=== PATIENT | female | born 1995 | race Caucasian/White ===

== ENCOUNTER 2018-02-07 15:03 | Emergency (ER) | payer OTHER ==
--- NOTE | 2018-02-07 15:12 | ER Report ---
History and Physical Time Seen By MD: 15:12 HPI/ROS CHIEF COMPLAINT: Right shoulder dislocation HISTORY OF PRESENT ILLNESS: 22-year-old female patient presents to emergency room with complaint of right shoulder dislocation. 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 She states that her arm shift with a table causing her shoulder to dislocate. She initially went to [facility] urgent care, had an x-ray done there which showed an anterior dislocation of the right humerus. She was referred to the emergency room for further evaluation and reduction. Patient states that she is having significant amounts of pain. She rates her pain an 8-9 out of 10. She denies having any numbness tingling in her hand. Patient states she is not taking any medication for this. REVIEW OF SYSTEMS: Respiratory: No cough, no dyspnea. Cardiovascular: No chest pain, no palpitations. Gastrointestinal: No vomiting, no abdominal pain. Musculoskeletal: As noted above Allergies: Coded Allergies: No Known Drug Allergies (Unverified , 02/07/18) Home Meds Active Scripts Hydrocodone Bit/Acetaminophen (HYDROCODON-ACETAMINOPHEN 5-325) 1 Each Tablet, 1 EACH PO Q4-6H Y for PAIN, #12 TAB Prov:ZULAY CORNELLSSCyndi TURK 02/07/18 Past Medical/Surgical History Patient has a past medical history of cholecystitis. Patient has a surgical history of cholecystectomy. Reviewed Nurses Notes: Yes Constitutional Vital Sign - Last 24 Hours 02/07/18 02/07/18 02/07/18 02/07/18 15:03 15:08 15:08 15:11 Temp 98.5 Pulse ??? 81 ??? Resp 20 B/P (MAP) 120/80 120/80 (93) Pulse Ox 91 O2 Delivery Room Air 02/07/18 02/07/18 02/07/18 02/07/18 15:13 15:18 15:23 15:28 Pulse 80 86 71 72 Pulse Ox 95 96 95 96 02/07/18 02/07/18 02/07/18 02/07/18 15:30 15:33 15:35 15:38 Pulse 73 71 Resp 15 11 B/P (MAP) 123/83 (96) 111/98 (102) Pulse Ox 99 100 02/07/18 02/07/18 02/07/1802/07/18 15:40 15:43 15:45 15:50 Pulse 79 Resp 8 B/P (MAP) 125/80 (95) 113/95 (101) 120/89 (99) Pulse Ox 99 02/07/18 02/07/18 02/07/18 02/07/18 15:53 15:55 15:58 16:00 Pulse 90 81 Resp 21 13 B/P (MAP) 132/89 (103) 127/93 (104) Pulse Ox 100 100 02/07/18 02/07/18 02/07/18 02/07/18 16:03 16:05 16:08 16:10 Pulse 93 86 Resp 10 6 B/P (MAP) 132/83 (99) 121/78 (92) Pulse Ox 96 97 02/07/18 02/07/18 02/07/18 02/07/18 16:13 16:15 16:18 16:20 Pulse 79 80 Resp 22 15 B/P (MAP) 132/84 (100) 127/81 (96) Pulse Ox 98 98 02/07/18 02/07/18 02/07/18 02/07/18 16:23 16:25 16:28 16:30 Pulse 79 85 Resp 11 17 B/P (MAP) 132/86 (101) 119/83 (95) Pulse Ox 99 99 02/07/18 02/07/18 02/07/18 16:33 16:35 16:38 Pulse 82 76 Resp 13 8 B/P (MAP) 116/85 (95) Pulse Ox 100 97 Physical Exam General Appearance: The patient is alert, has no immediate need for airway protection and no current signs of toxicity. Respiratory: Chest is non tender, lungs are clear to auscultation. Cardiac: regular rate and rhythm Gastrointestinal: Abdomen is soft and non tender, no masses, bowel sounds normal. Musculoskeletal: Extremities have full range of motion and are non tender. Patient has obvious dislocation of right shoulder, she has step-off as well as humeral head is palpable on the chest. Skin: No rashes or lesions. DIFFERENTIAL DIAGNOSIS: After history and physical exam differential diagnosis was considered for right shoulder dislocation Medical Decision Making EKG/Imaging Imaging SHOULDER MIN 2 VIEWS RIGHT COMPARISONS: None. ADDITIONAL PERTINENT HISTORY: Post reduction FINDINGS: Osseous structures: Negative. Joint spaces: Negative. Surrounding soft tissues: Negative. IMPRESSION: 1. Normal views of the right shoulder. 2. Specifically the glenohumeral joint has a normal appearance with no evidence of dislocation. Report Dictated By: Leobardo Badillo MD at 02/07/2018 4:20 PM Report E-Signed By: Leobardo Badillo MD at 02/07/2018 4:20 PM ED Course/Re-evaluation ED Course Patient was admitted and examined, history and physical were obtained. Differential diagnoses were considered. On examination patient does have obvious dislocation of the right shoulder. I did review the x-rays from the urgent care which shows an obvious anterior dislocation. With patient's consent we did do conscious sedation and reduction as described below. Patient tolerated procedure well. A repeat x-ray was done which showed successful reduction of the right shoulder. Patient was placed in a sling. After waiting several minutes for her to be fully awake patient states she's feeling significant better. Her pain is a 2 out of 10. She denies any numbness tingling to the hand, she will move the fingers without any difficulties. We'll go ahead and discharge patient home. She is follow-up with [facility], information was given for them to call. She is to return to the emergency room if condition worsens. She may take ibuprofen in addition to pain medication to help with her pain. Patient and mother verbalized understanding and agreement with plan. Procedure: Procedural sedation. A pre-sedation evaluation was completed on the patient at 1547. Patient is an appropriate candidate for procedural sedation. The risks of the sedation were discussed with the patient. A time out was completed. The patient was reevaluated immediately prior to initiation of sedation. The patient was sedated with 75 mg of propofol. The patient was monitored with continuous pulse oximetry and school lunch monitor. There were no complications and no significant hypoxemia. I remained at the bedside for the sedation. The total time I spent in the procedural sedation was 10 minutes. Post sedation evaluation: Patient was alert and cooperative, hemodynamically stable with appropriate respiratory status, temperature and pain control without ongoing nausea and vomiting. Conscious sedation was performed by Dr. Carroll. Procedure: Dislocation reduction. The shoulder was reduced in the usual fashion without complications. Post reduction the patient's neurovascular exam is normal. Post reduction x-ray demonstrates reduction of the joint to the anatomic position. The procedure was performed by myself under the direct supervision of Dr. Carroll. Decision to Disposition Date: February 07, 2018 Decision to Disposition Time: 16:39 Depart Departure Latest Vital Signs Vital Signs Date Time Temp Pulse Resp B/P (MAP) Pulse Ox O2 Delivery O2 Flow Rate FiO2 02/07/18 16:38 76 8 97 02/07/18 16:35 116/85 (95) 02/07/18 15:08 98.5 Room Air Impression: Primary Impression: Dislocation of right shoulder joint Condition: Improved Disposition: HOME OR SELF-CARE Referrals: MADISON STEVENSON MD New Scripts Hydrocodone Bit/Acetaminophen (HYDROCODON-ACETAMINOPHEN 5-325) 1 Each Tablet 1 EACH PO Q4-6H Y for PAIN, #12 TAB Prov: DC CORNELL 02/07/18 Patient Instructions: Shoulder Dislocation (ED) Additional Instructions: Limit activity by pain. Ice the shoulder 2-3 times a day for 10-15 minutes. [facility]up with [facility], call on Friday to make an appointment. Wear the sling 23/24 hours a day, you may take it off to shower. Take Ibuprofen (600mg 4 times a day) as needed for pain medication in addition to the pain medication. Return to the emergency room if condition worsens. Problem Qualifiers Primary Impression: Dislocation of right shoulder joint Encounter type: initial encounter Qualified Codes: S43.004A - Unspecified dislocation of right shoulder joint, initial encounter DC CORNELL February 07, 2018 15:12
[2018-02-07] MEDS ORDERED: PROPOFOL EMUL 10MG/ML 20 ML VL IV ONE (15:20)
[2018-02-07] MEDS ORDERED: NS(*) 0.9% 1000 ML BAG 1,000 ML IV ONE (15:20)
[2018-02-07] MEDS ORDERED: fentaNYL CITR 100 MCG/2 ML AMP IVP ONE ×2 (15:20→15:55)
[2018-02-07] MEDS ORDERED: ONDANSETRON 4 MG/2 ML VIAL ONE (15:40)
[2018-02-07] MEDS ORDERED: APAP/HYDROCODONE 325/5 TAB PO ONE (15:55)
--- NOTE | 2018-02-07 16:24 | RADIOLOGY IMAGING REPORT ---
FACILITY: [facility] PATIENT NAME: Gaby Brito : 1995 MR: [id number] V: [id number] EXAM DATE: ORDERING PHYSICIAN: DC CORNELL TECHNOLOGIST: Location: [facility] - [place] Patient: Gaby Brito : 1995 Visit/Account:[id number] Date of Sevice: 02/07/2018 SHOULDER MIN 2 VIEWS RIGHT COMPARISONS: None. ADDITIONAL PERTINENT HISTORY: Post reduction FINDINGS: Osseous structures: Negative. Joint spaces: Negative. Surrounding soft tissues: Negative. IMPRESSION: 1. Normal views of the right shoulder. 2. Specifically the glenohumeral joint has a normal appearance with no evidence of dislocation. Report Dictated By: Leobardo Badillo MD at 02/07/2018 4:20 PM Report E-Signed By: Leobardo Badillo MD at 02/07/2018 4:20 PM WSN:[id number]
[2018-02-07] MEDS ORDERED: HYDR-385 PO (16:37)
[2018-02-07 16:50] VITALS: BP 116/92
== END 2018-02-07 16:43 | disposition home or self-care (01) ==
LOC: ER 15:16
DX: S43.004A Unspecified dislocation of right shoulder joint, initial encounter (principal)
CPT/HCPCS: 23650; 73030; 99156; 99284; J2704; J3010; J7030; 99152

== ENCOUNTER 2018-05-10 03:40 | Emergency (ER) | payer OTHER ==
[~2018-05-10 03:40] MED LIST: HYDR-385 PO
[2018-05-10] MEDS ORDERED: BERBERINE PO (03:50)
[2018-05-10] MEDS ORDERED: NORG1TAB74 PO (03:50)
--- NOTE | 2018-05-10 04:14 | ER Report ---
History and Physical Time Seen By MD: 03:48 Hx. of Stated Complaint: PT REPORTS THAT SHE GOT OFF WORK TONIGHT. FELT "FUNKY" IN MY CHEST. FEELS LIKE HEART IN THROAT. FIRST SYMPTOMS AT ABOUT 0300. HPI/ROS CHIEF COMPLAINT: palpitations HISTORY OF PRESENT ILLNESS: This is a 22 year old female. She started having palpitations at about 0300 when she was getting off of work. Feeling normal prior to that. Nothing makes them worse or better. Denies any stimulant use such as caffeine, tobacco or energy drinks. No drug use. Mildly short of breath with these. No chest pain. No nausea. Feeling a little bit dizzy. No fevers or chills .No abdominal pain. Normal bowel and bladder function. Allergies: Coded Allergies: No Known Drug Allergies (Unverified , 05/10/18) Home Meds Reported Medications [Berberine] No Conflict Check, 1000 MG PO BID 05/10/18 Norgestimate-Ethinyl Estradiol (SPRINTEC) 1 Each Tablet, 1 EACH PO DAILY 05/10/18 Discontinued Scripts Hydrocodone Bit/Acetaminophen (HYDROCODON-ACETAMINOPHEN 5-325) 1 Each Tablet, 1 EACH PO Q4-6H Y for PAIN, #12 TAB Prov:DC CORNELL PAN SHAKER 02/07/18 Past Medical/Surgical History PCO S, anxiety and depression, history of cholecystectomy Reviewed Nurses Notes: Yes Hx Substance Use Disorder: No Hx Alcohol Use: No Constitutional Vital Sign - Last 24 Hours 05/10/18 05/10/18 05/10/18 05/10/18 03:47 03:50 04:00 04:15 Temp 98.2 Pulse 93 85 83 Resp 14 10 B/P (MAP) 143/105 (118) 143/105 134/90 (105) 123/84 (97) Pulse Ox 97 98 O2 Delivery Room Air 05/10/18 05/10/18 05/10/18 05/10/18 04:30 05:00 05:15 05:30 Pulse 90 85 93 Resp 16 9 B/P (MAP) 130/88 (102) 119/76 (90) 116/79 (91) Pulse Ox 96 96 Physical Exam General Appearance: The patient is alert. No acute distress. Eyes: Pupils are equal, round. No pallor, injection or icterus. ENT: Mucous membranes are moist. Neck: Supple and non tender. No lymphadenopathy. Respiratory: Lungs are clear to auscultation. Cardiovascular: Regular rate and rhythm. No murmurs, gallops or rubs. Normal capillary refill. No edema. Gastrointestinal: Abdomen is soft and non tender. Nondistended. Normal active bowel sounds. Neurological: Alert and oriented x3. Cranial nerves II through XII show no acute deficits on my exam. No focal neurologic deficits in the extremities. Skin: Warm and dry. No rashes. DIFFERENTIAL DIAGNOSIS: After history and physical exam, differential diagnosis was considered for heart palpitations looking for possible electrolyte abnormality, cardiac problems, thyroid abnormality, substance use, other metabolic problems. Medical Decision Making Data Points Result Diagram: 05/10/18 0435 05/10/18 0435 Laboratory Hematology Test 05/10/18 04:25 05/10/18 04:35 Urine Color Yellow Urine Clarity Clear Urine pH 6.0 pH (4.8-9.5) Urine Specific [place] 1.019 Urine Protein Negative mg/dL (NEGATIVE) Urine Glucose (UA) Negative mg/dL (NEGATIVE) Urine Ketones Negative mg/dL (NEGATIVE) Urine Blood Negative (NEGATIVE) Urine Nitrite Negative (NEGATIVE) Urine Bilirubin Negative (NEGATIVE) Urine Urobilinogen Negative mg/dL (0.2-1.9) Urine Leukocyte Esterase Negative (NEGATIVE) Urine RBC None /HPF (0-2/HPF) Urine WBC 1 /HPF (0-5/HPF) Urine Squamous Epithelial Cells Many /LPF (</=FEW) Urine Bacteria Negative /HPF (NONE-FEW) Urine Mucus None /HPF (NONE-FEW) Urine Opiates Screen Negative Urine Barbiturates Screen Negative Ur Tricyclic Antidepressants Screen Negative Urine Phencyclidine Screen Negative Urine Amphetamines Screen Negative Urine Benzodiazepines Screen Negative Urine Cocaine Screen Negative Urine Cannabinoids Screen Negative Red Blood Count 5.08 M/uL (4.17-5.56) Mean Corpuscular Volume 82.0 fL (80.0-96.0) Mean Corpuscular Hemoglobin 28.7 pg (26.0-33.0) Mean Corpuscular Hemoglobin Concent 35.0 g/dL (32.0-36.0) Red Cell Distribution Width 13.3 % (11.5-14.5) Mean Platelet Volume 6.3 fL (7.2-11.1) Neutrophils (%) (Auto) 55.0 % (39.4-72.5) Lymphocytes (%) (Auto) 33.4 % (17.6-49.6) Monocytes (%) (Auto) 7.3 % (4.1-12.4) Eosinophils (%) (Auto) 3.9 % (0.4-6.7) Basophils (%) (Auto) 0.4 % (0.3-1.4) Nucleated RBC Relative Count (auto) 0.1 /100WBC Neutrophils # (Auto) 5.2 K/uL (2.0-7.4) Lymphocytes # (Auto) 3.2 K/uL (1.3-3.6) Monocytes # (Auto) 0.7 K/uL (0.3-1.0) Eosinophils # (Auto) 0.4 K/uL (0.0-0.5) Basophils # (Auto) 0.0 K/uL (0.0-0.1) Nucleated RBC Absolute Count (auto) 0.01 K/uL Sodium Level 141 mmol/L (137-145) Potassium Level 3.9 mmol/L (3.5-5.0) Chloride Level 108 mmol/L (98-107) Carbon Dioxide Level 23 mmol/L (22-31) Blood Urea Nitrogen 7 mg/dl (7-18) Creatinine 0.70 mg/dl (0.52-1.04) Glomerular Filtration Rate Calc > 60.0 Random Glucose 96 mg/dl (75-110) Calcium Level 9.2 mg/dl (8.4-10.2) Total Bilirubin 0.3 mg/dl (0.2-1.3) Aspartate Amino Transf (AST/SGOT) 16 U/L (0-35) Alanine Aminotransferase (ALT/SGPT) 14 U/L (0-56) Alkaline Phosphatase 76 U/L (0-126) Troponin I < 0.012 ng/ml Total Protein 7.1 g/dl (6.3-8.2) Albumin 4.2 g/dl (3.5-5.0) Human Chorionic Gonadotropin, Qual Negative (NEGATIVE) Chemistry Test 05/10/18 04:25 05/10/18 04:35 Urine Color Yellow Urine Clarity Clear Urine pH 6.0 pH (4.8-9.5) Urine Specific [place] 1.019 Urine Protein Negative mg/dL (NEGATIVE) Urine Glucose (UA) Negative mg/dL (NEGATIVE) Urine Ketones Negative mg/dL (NEGATIVE) Urine Blood Negative (NEGATIVE) Urine Nitrite Negative (NEGATIVE) Urine Bilirubin Negative (NEGATIVE) Urine Urobilinogen Negative mg/dL (0.2-1.9) Urine Leukocyte Esterase Negative (NEGATIVE) Urine RBC None /HPF (0-2/HPF) Urine WBC 1 /HPF (0-5/HPF) Urine Squamous Epithelial Cells Many /LPF (</=FEW) Urine Bacteria Negative /HPF (NONE-FEW) Urine Mucus None /HPF (NONE-FEW) Urine Opiates Screen Negative Urine Barbiturates Screen Negative Ur Tricyclic Antidepressants Screen Negative Urine Phencyclidine Screen Negative Urine Amphetamines Screen Negative Urine Benzodiazepines Screen Negative Urine Cocaine Screen Negative Urine Cannabinoids Screen Negative White Blood Count 9.5 k/uL (4.5-11.0) Red Blood Count 5.08 M/uL (4.17-5.56) Hemoglobin 14.6 g/dL (12.0-16.0) Hematocrit 41.7 % (34.0-47.0) Mean Corpuscular Volume 82.0 fL (80.0-96.0) Mean Corpuscular Hemoglobin 28.7 pg (26.0-33.0) Mean Corpuscular Hemoglobin Concent 35.0 g/dL (32.0-36.0) Red Cell Distribution Width 13.3 % (11.5-14.5) Platelet Count 358 K/uL (150-450) Mean Platelet Volume 6.3 fL (7.2-11.1) Neutrophils (%) (Auto) 55.0 % (39.4-72.5) Lymphocytes (%) (Auto) 33.4 % (17.6-49.6) Monocytes (%) (Auto) 7.3 % (4.1-12.4) Eosinophils (%) (Auto) 3.9 % (0.4-6.7) Basophils (%) (Auto) 0.4 % (0.3-1.4) Nucleated RBC Relative Count (auto) 0.1 /100WBC Neutrophils # (Auto) 5.2 K/uL (2.0-7.4) Lymphocytes # (Auto) 3.2 K/uL (1.3-3.6) Monocytes # (Auto) 0.7 K/uL (0.3-1.0) Eosinophils # (Auto) 0.4 K/uL (0.0-0.5) Basophils # (Auto) 0.0 K/uL (0.0-0.1) Nucleated RBC Absolute Count (auto) 0.01 K/uL Glomerular Filtration Rate Calc > 60.0 Calcium Level 9.2 mg/dl (8.4-10.2) Total Bilirubin 0.3 mg/dl (0.2-1.3) Aspartate Amino Transf (AST/SGOT) 16 U/L (0-35) Alanine Aminotransferase (ALT/SGPT) 14 U/L (0-56) Alkaline Phosphatase 76 U/L (0-126) Troponin I < 0.012 ng/ml Total Protein 7.1 g/dl (6.3-8.2) Albumin 4.2 g/dl (3.5-5.0) Human Chorionic Gonadotropin, Qual Negative (NEGATIVE) Toxicology Test 05/10/18 04:25 Urine Opiates Screen Negative Urine Barbiturates Screen Negative Ur Tricyclic Antidepressants Screen Negative Urine Phencyclidine Screen Negative Urine Amphetamines Screen Negative Urine Benzodiazepines Screen Negative Urine Cocaine Screen Negative Urine Cannabinoids Screen Negative Urinalysis Test 05/10/18 04:25 Urine Color Yellow Urine Clarity Clear Urine pH 6.0 pH (4.8-9.5) Urine Specific [place] 1.019 Urine Protein Negative mg/dL (NEGATIVE) Urine Glucose (UA) Negative mg/dL (NEGATIVE) Urine Ketones Negative mg/dL (NEGATIVE) Urine Blood Negative (NEGATIVE) Urine Nitrite Negative (NEGATIVE) Urine Bilirubin Negative (NEGATIVE) Urine Urobilinogen Negative mg/dL (0.2-1.9) Urine Leukocyte Esterase Negative (NEGATIVE) Urine RBC None /HPF (0-2/HPF) Urine WBC 1 /HPF (0-5/HPF) Urine Squamous Epithelial Cells Many /LPF (</=FEW) Urine Bacteria Negative /HPF (NONE-FEW) Urine Mucus None /HPF (NONE-FEW) EKG/Imaging EKG Interpretation 12 lead EKG: Rhythm: normal sinus rhythm, rate 94 [place]: normal QRS: normal ST segments: normal Imaging HISTORY: Palpitations DATE: 05/10/2018 4:12 AM TECHNIQUE: CHEST PA AND LAT COMPARISON: none FINDINGS: The cardiomediastinal silhouette is of normal size and contour. No pleural effusion. No pneumothorax. No consolidation. The lungs are adequately expanded. IMPRESSION: Radiographically normal chest. Report Dictated By: Len Boggs MD at 05/10/2018 5:00 AM ED Course/Re-evaluation Clinical Indication for ER IV: IV Access ED Course Labs unremarkable, Chest x-ray, EKG and heart monitor negative.Reviewed labs with the patient. Offered Holter monitor at this time. Patient declined and will follow-up if having further problems. Decision to Disposition Date: May 10, 2018 Decision to Disposition Time: 05:40 Depart Departure Latest Vital Signs Vital Signs Date Time Temp Pulse Resp B/P (MAP) Pulse Ox O2 Delivery O2 Flow Rate FiO2 05/10/18 05:30 93 05/10/18 05:15 9 116/79 (91) 96 05/10/18 03:50 98.2 Room Air Impression: Primary Impression: Palpitations Additional Impression: Premature ventricular contractions (PVCs) (VPCs) Condition: Improved Disposition: HOME OR SELF-CARE Patient Instructions: Palpitations (ED), Premature Ventricular Contractions (ED ) Additional Instructions: We recommend follow-up with a primary care provider or school community relations coordinator to follow- up regarding the heart palpitations you are feeling. We did not find anything dangerous tonight, but further evaluation can be done if this continues to be a problem for you. Problem Qualifiers JD PICKENS MD May 10, 2018 04:14
--- NOTE | 2018-05-10 04:30 | EKG ---
FACILITY: [facility] - [place] PATIENT NAME: NELL AVENDAÑO : [id number] MR: [id number] V: [id number] EXAM DATE: ORDERING PHYSICIAN: JD PICKENS TECHNOLOGIST: KENYA Beauchamp Reason : Blood Pressure : / mmHG Vent. Rate : 094 BPM Atrial Rate : 094 BPM P-R Int : 146 ms QRS Dur : 082 ms QT Int : 354 ms P-R-T Axes : 058 038 045 degrees QTc Int : 442 ms Normal sinus rhythm Normal ECG No previous ECGs available Confirmed by MILA PEREZ ([id number]) on 05/10/2018 6:34:19 AM Referred By: Confirmed By:MILA PEREZ
[2018-05-10 04:46] LABS: PLATELET COUNT, AUTOMATED 358 K/uL (150-450)
--- NOTE | 2018-05-10 05:06 | RADIOLOGY IMAGING REPORT ---
FAC[place] [facility] [place]IENT NAME: Gaby Brito : 1995 MR: [id number] V: [id number] EXAM DATE: ORDERING PHYSICIAN: JD PICKENS TECHNOLOGIST: [place] [facility] [place]: Gaby Brito : 1995 Visit/Account:[id number] Date of Sevice: 05/10/2018 HISTORY: Palpitations DATE: 05/10/2018 4:12 AM TECHNIQUE: CHEST PA AND LAT COMPARISON: none FINDINGS: The cardiomediastinal silhouette is of normal size and contour. No pleural effusion. No pne umothorax. No consolidation. The lungs are adequately expanded. IMPRESSION: Radiographically normal chest. Report Dictated By: Len Boggs MD at 05/10/2018 5:00 AM Report E-Signed By: Len Boggs MD at 05/10/2018 5:02 AM WSN:[id number]
[2018-05-10 05:15] VITALS: BP 116/79
== END 2018-05-10 05:49 | disposition home or self-care (01) ==
LOC: ER 03:50
DX: I49.3 Ventricular premature depolarization (principal)
CPT/HCPCS: 71046; 80305; 81001; 82040; 82247; 82310; 82374; 82435; 82565; 82947; 84075; 84132; 84155; 84295; 84443; 84450; 84460; 84484; 84520; 84703; 85025; 93005; 99284